=== PATIENT | female | born 1985 | race Caucasian/White ===

== ENCOUNTER 2017-04-20 22:30 | Inpatient (IN) | payer MEDICAID ==
[2017-04-21] MEDS ORDERED: LACTATED RINGER'S 500 ML IV (02:12)
[2017-04-21] MEDS ORDERED: METHYLERGONOVINE 0.2 MG INJ IM ×2 (02:30→19:00)
[2017-04-21] MEDS ORDERED: HYDROCODONE/APAP (5/325) TAB PO ×2 (02:30→19:00)
[2017-04-21] MEDS ORDERED: OXYTOCIN 30 UNITS/LR 500 ML IV ×4 (02:30→19:00)
[2017-04-21] MEDS ORDERED: LIDOCAINE 1% (MPF) 30 ML INJ INJ (02:30)
[2017-04-21] MEDS ORDERED: CARBOPROST 250 MCG INJ IM ×2 (02:30→19:00)
[2017-04-21] MEDS ORDERED: BUTORPHANOL 2 MG INJ IV (02:30)
[2017-04-21] MEDS ORDERED: MISOPROSTOL 200 MCG TAB PR ×2 (02:30→19:00)
[2017-04-21] MEDS: LACTATED RINGER'S 500 ML IV ×6 (02:41→19:00)
[2017-04-21 03:02] LABS: ADD MAN DIFF? NO
[2017-04-21 03:06] LABS: WHITE BLOOD COUNT 7.8 10^3/ul (4.8-10.8)
[2017-04-21 03:06] LABS: BASOPHILS % 0.1 % (0.0-2.0); EOSINOPHILS # 0.1 10^3/ul (0.0-0.5); HEMATOCRIT 33.8 % (37.0-47.0); HEMOGLOBIN 11.9 g/dl (12.0-16.0); LYMPHOCYTES # 2.2 10^3/ul (0.8-2.9); LYMPHOCYTES % 27.9 % (15.0-51.0); MEAN CORPUSCULAR HGB CONC 35.2 g/dl (32.0-37.0); MEAN CORPUSCULAR VOLUME 93.6 fl (82.0-101.0); MEAN PLATELET VOLUME 11.7 fl (7.4-10.4); MONOCYTE # 0.6 10^3/ul (0.3-0.9); MONOCYTES % 7.9 % (0.0-11.0); NEUTROPHIL # 4.9 10^3/ul (1.6-7.5); NEUTROPHILS % 62.6 % (39.0-77.0); PLATELET COUNT 160 10^3/UL (140-415); RED BLOOD COUNT 3.61 10^6/ul (4.20-5.40); RED CELL DISTRIBUTION WIDTH 13.4 % (11.5-14.5)
[2017-04-21 03:26] LABS: INR 0.85; PROTIME 11.7 Sec (11.9-14.9); PT RATIO 0.9
[2017-04-21 03:27] LABS: PARTIAL THROMBOPLASTIN TIME 25.9 Sec (25.0-35.0)
[2017-04-21 04:01] LABS: HEPATITIS B SURFACE ANTIGEN NEGATIVE (NEGATIVE)
[2017-04-21] MEDS: OXYTOCIN 30 UNITS/LR 500 ML IV ×3 (04:09→18:52)
[2017-04-21] MEDS: BUTORPHANOL 2 MG INJ IV (08:00)
[2017-04-21] MEDS ORDERED: FENTAnyl 2MCG/ML-ROPIV 0.2% 100 ML (10:19)
[2017-04-21] MEDS ORDERED: FENTAnyl 2MCG/ML-ROPIV 0.2% 100 ML BAG EPI (15:30)
[2017-04-21] MEDS ORDERED: DIPHENHYDRAMINE 50 MG INJ IV (15:30)
[2017-04-21] MEDS ORDERED: NALOXONE (0.4 MG/ML) INJ IV (15:30)
[2017-04-21] MEDS ORDERED: ONDANSETRON 4 MG INJ IV (15:30)
[2017-04-21 15:34] LABS: RAPID PLASMA REAGIN NONREACTIVE (NR)
[2017-04-21] MEDS: IBUPROFEN 600 MG TAB PO (17:15)
[2017-04-21] MEDS: LACTATED RINGER'S 1,000 ML IV* ×2 (18:52→21:49)
[2017-04-21] MEDS ORDERED: DIPHENHYDRAMINE 25 MG CAP PO (19:00)
[2017-04-21] MEDS ORDERED: ZOLPIDEM 5 MG TAB PO (19:00)
[2017-04-21] MEDS ORDERED: MAGNESIUM HYDROXIDE 30ML CUP PO (19:00)
[2017-04-21] MEDS ORDERED: ACETAMINOPHEN 325 MG TAB PO (19:00)
[2017-04-21] MEDS: SENNA/DOCUSATE NA (8.6MG/50MG) TAB PO (21:49)
[2017-04-22] MEDS: IBUPROFEN 800 MG TAB PO ×5 (00:45→23:58)
[2017-04-22] MEDS: LANOLIN 7 GM TUBE TOP (00:46)
[2017-04-22] MEDS: WITCH HAZEL/GLYCERIN PAD PR (00:46)
[2017-04-22] MEDS: BENZOCAINE 20% 56 ML SPRAY TOP (00:46)
[2017-04-22] MEDS: LACTATED RINGER'S 500 ML IV (07:00)
[2017-04-22 08:38] LABS: ADD MAN DIFF? NO
[2017-04-22 08:50] LABS: BASOPHILS % 0.1 % (0.0-2.0); EOSINOPHILS # 0.1 10^3/ul (0.0-0.5); EOSINOPHILS % 0.5 % (0.0-7.0); HEMATOCRIT 29.9 % (37.0-47.0); HEMOGLOBIN 10.5 g/dl (12.0-16.0); LYMPHOCYTES # 1.8 10^3/ul (0.8-2.9); LYMPHOCYTES % 15.4 % (15.0-51.0); MEAN CORPUSCULAR HEMOGLOBIN 33.8 pg (29.0-33.0); MEAN CORPUSCULAR HGB CONC 35.1 g/dl (32.0-37.0); MEAN CORPUSCULAR VOLUME 96.1 fl (82.0-101.0); MEAN PLATELET VOLUME 11.6 fl (7.4-10.4); MONOCYTE # 0.9 10^3/ul (0.3-0.9); MONOCYTES % 7.2 % (0.0-11.0); NEUTROPHIL # 9.1 10^3/ul (1.6-7.5); NEUTROPHILS % 76.3 % (39.0-77.0); PLATELET COUNT 142 10^3/UL (140-415); RED BLOOD COUNT 3.11 10^6/ul (4.20-5.40); RED CELL DISTRIBUTION WIDTH 13.4 % (11.5-14.5)
[2017-04-22 08:50] LABS: WHITE BLOOD COUNT 11.9 10^3/ul (4.8-10.8)
[2017-04-22] MEDS: LACTATED RINGER'S 1,000 ML IV* (10:55)
[2017-04-23] MEDS: IBUPROFEN 800 MG TAB PO ×3 (06:00→17:20)
[2017-04-23] MEDS: MEASLES,MUMPS,RUBELLA VACCINE INJ SC* (09:00)
[2017-04-23] MEDS: VARICELLA VACCINE LIVE/PF 1,350 UNIT/0.5 ML ML SC* (09:00)
[2017-04-23] MEDS: DIPHTH/TET/ACEL PERTUSS (ADULT) 0.5 ML VIAL IM* (10:24)
[2017-04-23] MEDS: LANOLIN 7 GM TUBE TOP (16:45)
[2017-04-23] MEDS: BENZOCAINE 20% 56 ML SPRAY TOP (16:46)
[2017-04-23] MEDS: WITCH HAZEL/GLYCERIN PAD PR (16:46)
== END 2017-04-23 18:06 | disposition home or self-care (01) | DRG 775 ==
LOC: OBT 22:30 → L-D 22:32 → PP1 04-21 18:35
PROVIDERS: Obstetrics & Gynecology
PROC: 10E0XZZ Delivery of Products of Conception, External Approach (ICD-10-PCS; principal; 2017-04-21)
DX: O80 Encounter for full-term uncomplicated delivery (principal); Z37.0 Single live birth; Z3A.39 39 weeks gestation of pregnancy
CPT/HCPCS: 62319; 85025; 85610; 85730; 86592; 86850; 86900; 86901; 87340; 90715; 90716